=== PATIENT | female | born 1995 | race Asian ===

== ENCOUNTER 2018-03-28 22:53 | Emergency (ER) | payer SELFPAY ==
[~2018-03-28] VITALS: Ht 160 cm; Wt 40.5 kg
[2018-03-28 22:58] VITALS: BP 118/73; TEMP 98
[2018-03-29 00:18] VITALS: PULSE 84
== END 2018-03-29 00:18 | disposition home or self-care (01) ==
LOC: COL.ER 22:53
DX: S61.211A Laceration without foreign body of left index finger without damage to nail, initial encounter (principal); W26.0XXA Contact with knife, initial encounter; Y92.009 Unspecified place in unspecified non-institutional (private) residence as the place of occurrence of the external cause

== ENCOUNTER 2018-04-07 15:43 | Emergency (ER) | payer SELFPAY ==
[2018-04-07 16:22] VITALS: BP 97/58; PULSE 95
== END 2018-04-07 16:22 | disposition home or self-care (01) ==
LOC: COL.ER 15:43
DX: S61.217D Laceration without foreign body of left little finger without damage to nail, subsequent encounter (principal)